=== PATIENT | female | born 1960 | race Two or more races ===

== ENCOUNTER 2018-01-19 18:12 | Inpatient (IN) | payer OTHER ==
[2018-01-19] MEDS: hydrALAzine 20 MG INJ IV (19:02)
[2018-01-19] MEDS: traMADol 50 MG TAB PO (22:02)
[2018-01-19] MEDS ORDERED: LORATADINE 10 MG TAB PO (22:30)
[2018-01-19] MEDS ORDERED: DOCUSATE SODIUM 100 MG CAP PO (22:30)
[2018-01-19] MEDS ORDERED: GLUCAGON 1 MG INJ IM (23:45)
[2018-01-19] MEDS ORDERED: GLUCOSE GEL 15 GRAM TUBE BUCCAL (23:45)
[2018-01-19] MEDS ORDERED: GLUCOSE GEL 15 GRAM TUBE PO ×2 (23:45)
[2018-01-20] MEDS: GABAPENTIN 300 MG CAP PO ×2 (00:21→20:57)
[2018-01-20] MEDS: BUMETANIDE 1 MG TAB PO ×3 (00:35→18:09)
[2018-01-20] MEDS: ACCU-CHEK XX (02:00)
[2018-01-20] MEDS: LEVOTHYROXINE 125 MCG TAB PO (06:45)
[2018-01-20] MEDS: METOPROLOL 25 MG TAB PO ×2 (08:58→20:57)
[2018-01-20] MEDS: MULTIVIT/CA CARB/B CMPLX/FA TAB PO (08:58)
[2018-01-20] MEDS: ISOSORBIDE MONONITRATE(SR)30 MG TAB PO (08:58)
[2018-01-20] MEDS: CLOTRIMAZOLE 1% 30 ML TOPICAL SOLN TOP ×2 (09:00→21:00)
[2018-01-20] MEDS ORDERED: LOSARTAN PO (09:00)
[2018-01-20] MEDS: INSULIN ASPART [NOVOLOG] 3 ML PEN SC ×5 (09:00→21:15)
[2018-01-20] MEDS ORDERED: [UNRECOGNIZED DRUG - REMARK] XX (09:00)
[2018-01-20] MEDS: INSULIN GLARGINE [LANtus] 3 ML PEN SC (09:01)
[2018-01-20] MEDS: traMADol 50 MG TAB PO ×2 (09:05→21:02)
[2018-01-20 12:13] LABS: ADD MAN DIFF? NO
[2018-01-20 12:20] LABS: BASOPHILS % 0.6 % (0.0-2.0); EOSINOPHILS # 0.2 10^3/ul (0.0-0.5); EOSINOPHILS % 2.7 % (0.0-7.0); HEMATOCRIT 37.4 % (37.0-47.0); HEMOGLOBIN 11.8 g/dl (12.0-16.0); LYMPHOCYTES # 1.3 10^3/ul (0.8-2.9); LYMPHOCYTES % 19.4 % (15.0-51.0); MEAN CORPUSCULAR HEMOGLOBIN 29.3 pg (29.0-33.0); MEAN CORPUSCULAR HGB CONC 31.6 g/dl (32.0-37.0); MEAN CORPUSCULAR VOLUME 92.8 fl (82.0-101.0); MEAN PLATELET VOLUME 12.1 fl (7.4-10.4); MONOCYTE # 0.4 10^3/ul (0.3-0.9); MONOCYTES % 6.6 % (0.0-11.0); NEUTROPHIL # 4.7 10^3/ul (1.6-7.5); NEUTROPHILS % 70.5 % (39.0-77.0); PLATELET COUNT 191 10^3/UL (140-415); RED BLOOD COUNT 4.03 10^6/ul (4.20-5.40); RED CELL DISTRIBUTION WIDTH 16.4 % (11.5-14.5)
[2018-01-20 12:20] LABS: WHITE BLOOD COUNT 6.6 10^3/ul (4.8-10.8)
[2018-01-20 12:21] LABS: POSITIVE DIFF @See below
[2018-01-20] MEDS: LOSARTAN 25 MG TAB PO (12:30)
[2018-01-20 12:41] LABS: ALANINE AMINOTRANSFERASE 29 IU/L (13-69); ALBUMIN 4.9 g/dl (3.3-4.9); ALBUMIN/GLOBULIN RATIO 1.28; ALKALINE PHOSPHATASE 193 IU/L (42-121); ANION GAP 24 (8-16); ASPARTATE AMINO TRANSFERASE 26 IU/L (15-46); BLOOD UREA NITROGEN 68 mg/dl (7-20); CALCIUM 9.5 mg/dl (8.4-10.2); CARBON DIOXIDE 22 mmol/L (21-31); CHLORIDE 102 mmol/L (97-110); GLUCOSE 224 mg/dl (70-220); POTASSIUM 4.8 mmol/L (3.5-5.1); SODIUM 143 mmol/L (135-144); TOTAL PROTEIN 8.7 g/dl (6.1-8.1)
[2018-01-20 12:48] LABS: INR 1.05; PROTIME 13.8 Sec (11.9-14.9); PT RATIO 1.1
[2018-01-20 12:49] LABS: PARTIAL THROMBOPLASTIN TIME 28.4 Sec (25.0-35.0)
[2018-01-20] MEDS: ATORVASTATIN 80 MG TAB PO (20:57)
[2018-01-21] MEDS: ACCU-CHEK XX (01:35)
[2018-01-21] MEDS: LEVOTHYROXINE 125 MCG TAB PO (06:06)
[2018-01-21] MEDS: BUMETANIDE 1 MG TAB PO ×2 (06:07→18:00)
[2018-01-21 06:11] LABS: ADD MAN DIFF? NO
[2018-01-21 06:18] LABS: BASOPHILS % 0.5 % (0.0-2.0); EOSINOPHILS # 0.2 10^3/ul (0.0-0.5); EOSINOPHILS % 4.2 % (0.0-7.0); HEMATOCRIT 37.7 % (37.0-47.0); HEMOGLOBIN 11.7 g/dl (12.0-16.0); LYMPHOCYTES # 1.4 10^3/ul (0.8-2.9); LYMPHOCYTES % 24.5 % (15.0-51.0); MEAN CORPUSCULAR HEMOGLOBIN 28.7 pg (29.0-33.0); MEAN CORPUSCULAR VOLUME 92.4 fl (82.0-101.0); MEAN PLATELET VOLUME 11.7 fl (7.4-10.4); MONOCYTE # 0.5 10^3/ul (0.3-0.9); MONOCYTES % 8.3 % (0.0-11.0); NEUTROPHIL # 3.5 10^3/ul (1.6-7.5); NEUTROPHILS % 62.3 % (39.0-77.0); PLATELET COUNT 218 10^3/UL (140-415); RED BLOOD COUNT 4.08 10^6/ul (4.20-5.40); RED CELL DISTRIBUTION WIDTH 16.4 % (11.5-14.5)
[2018-01-21 06:18] LABS: WHITE BLOOD COUNT 5.7 10^3/ul (4.8-10.8)
[2018-01-21 06:43] LABS: ANION GAP 23 (8-16); BLOOD UREA NITROGEN 77 mg/dl (7-20); CALCIUM 8.9 mg/dl (8.4-10.2); CARBON DIOXIDE 21 mmol/L (21-31); CHLORIDE 105 mmol/L (97-110); CREATININE 4.88 mg/dl (0.44-1.00); GLUCOSE 165 mg/dl (70-220); POTASSIUM 4.8 mmol/L (3.5-5.1); SODIUM 144 mmol/L (135-144)
[2018-01-21] MEDS: INSULIN ASPART [NOVOLOG] 3 ML PEN SC ×4 (08:31→21:29)
[2018-01-21] MEDS: INSULIN GLARGINE [LANtus] 3 ML PEN SC (08:32)
[2018-01-21] MEDS: ISOSORBIDE MONONITRATE(SR)30 MG TAB PO (09:00)
[2018-01-21] MEDS: METOPROLOL 25 MG TAB PO ×2 (09:00→21:00)
[2018-01-21] MEDS: LOSARTAN 25 MG TAB PO (09:00)
[2018-01-21] MEDS: MULTIVIT/CA CARB/B CMPLX/FA TAB PO (09:12)
[2018-01-21] MEDS: CLOTRIMAZOLE 1% 30 ML TOPICAL SOLN TOP ×2 (10:21→21:23)
[2018-01-21] MEDS: traMADol 50 MG TAB PO ×2 (17:58→23:45)
[2018-01-21] MEDS: ATORVASTATIN 80 MG TAB PO (21:21)
[2018-01-21] MEDS: GABAPENTIN 300 MG CAP PO (21:21)
[2018-01-21] MEDS: HEPARIN 1000 UNITS/ML 10 ML INJ CATHETER (22:56)
[2018-01-22 00:15] LABS: HEPATITIS B SURFACE ANTIGEN NEGATIVE (NEGATIVE)
[2018-01-22] MEDS: ACCU-CHEK XX (01:48)
[2018-01-22 03:00] LABS: HEPATITIS B SURFACE ANTIBODY POSITIVE (NEGATIVE)
[2018-01-22] MEDS: LEVOTHYROXINE 125 MCG TAB PO (06:04)
[2018-01-22] MEDS: BUMETANIDE 1 MG TAB PO ×2 (06:04→17:30)
[2018-01-22 06:08] LABS: ADD MAN DIFF? NO
[2018-01-22 06:11] LABS: BASOPHILS % 0.6 % (0.0-2.0); EOSINOPHILS # 0.2 10^3/ul (0.0-0.5); EOSINOPHILS % 3.6 % (0.0-7.0); HEMOGLOBIN 11.4 g/dl (12.0-16.0); LYMPHOCYTES # 1.4 10^3/ul (0.8-2.9); LYMPHOCYTES % 26.2 % (15.0-51.0); MEAN CORPUSCULAR HEMOGLOBIN 28.9 pg (29.0-33.0); MEAN CORPUSCULAR HGB CONC 31.7 g/dl (32.0-37.0); MEAN CORPUSCULAR VOLUME 91.1 fl (82.0-101.0); MEAN PLATELET VOLUME 11.6 fl (7.4-10.4); MONOCYTE # 0.5 10^3/ul (0.3-0.9); MONOCYTES % 9.7 % (0.0-11.0); NEUTROPHIL # 3.2 10^3/ul (1.6-7.5); NEUTROPHILS % 59.7 % (39.0-77.0); PLATELET COUNT 181 10^3/UL (140-415); RED BLOOD COUNT 3.95 10^6/ul (4.20-5.40); RED CELL DISTRIBUTION WIDTH 16.2 % (11.5-14.5)
[2018-01-22 06:11] LABS: WHITE BLOOD COUNT 5.3 10^3/ul (4.8-10.8)
[2018-01-22 06:32] LABS: ANION GAP 21 (8-16); BLOOD UREA NITROGEN 43 mg/dl (7-20); CALCIUM 8.6 mg/dl (8.4-10.2); CARBON DIOXIDE 24 mmol/L (21-31); CHLORIDE 102 mmol/L (97-110); GLUCOSE 212 mg/dl (70-220); POTASSIUM 4.1 mmol/L (3.5-5.1); SODIUM 143 mmol/L (135-144)
[2018-01-22] MEDS: INSULIN ASPART [NOVOLOG] 3 ML PEN SC ×5 (07:48→20:01)
[2018-01-22] MEDS: MULTIVIT/CA CARB/B CMPLX/FA TAB PO (09:28)
[2018-01-22] MEDS: METOPROLOL 25 MG TAB PO ×2 (09:29→20:02)
[2018-01-22] MEDS: LOSARTAN 25 MG TAB PO (09:29)
[2018-01-22] MEDS: ISOSORBIDE MONONITRATE(SR)30 MG TAB PO (09:29)
[2018-01-22] MEDS: INSULIN GLARGINE [LANtus] 3 ML PEN SC (09:31)
[2018-01-22] MEDS: CLOTRIMAZOLE 1% 30 ML TOPICAL SOLN TOP ×2 (09:44→20:05)
[2018-01-22 14:29] LABS: HEMOGLOBIN A1C 5.9 % (0-5.9)
[2018-01-22] MEDS: ATORVASTATIN 80 MG TAB PO (19:54)
[2018-01-22] MEDS: GABAPENTIN 300 MG CAP PO (19:54)
[2018-01-22] MEDS: traMADol 50 MG TAB PO (19:54)
[2018-01-23] MEDS: DEXTROSE 5%-0.45% NACL 1,000 ML IV ×2 (00:17→20:00)
[2018-01-23] MEDS: ACCU-CHEK XX (02:00)
[2018-01-23 06:01] LABS: ADD MAN DIFF? NO
[2018-01-23 06:10] LABS: WHITE BLOOD COUNT 5.9 10^3/ul (4.8-10.8)
[2018-01-23 06:10] LABS: BASOPHILS % 0.5 % (0.0-2.0); EOSINOPHILS # 0.2 10^3/ul (0.0-0.5); EOSINOPHILS % 4.1 % (0.0-7.0); HEMATOCRIT 35.3 % (37.0-47.0); HEMOGLOBIN 11.2 g/dl (12.0-16.0); LYMPHOCYTES # 1.8 10^3/ul (0.8-2.9); MEAN CORPUSCULAR HEMOGLOBIN 28.8 pg (29.0-33.0); MEAN CORPUSCULAR HGB CONC 31.7 g/dl (32.0-37.0); MEAN CORPUSCULAR VOLUME 90.7 fl (82.0-101.0); MEAN PLATELET VOLUME 11.7 fl (7.4-10.4); MONOCYTE # 0.6 10^3/ul (0.3-0.9); MONOCYTES % 9.5 % (0.0-11.0); NEUTROPHIL # 3.3 10^3/ul (1.6-7.5); NEUTROPHILS % 54.9 % (39.0-77.0); PLATELET COUNT 172 10^3/UL (140-415); RED BLOOD COUNT 3.89 10^6/ul (4.20-5.40); RED CELL DISTRIBUTION WIDTH 16.4 % (11.5-14.5)
[2018-01-23 06:44] LABS: ANION GAP 22 (8-16); BLOOD UREA NITROGEN 70 mg/dl (7-20); CALCIUM 8.4 mg/dl (8.4-10.2); CARBON DIOXIDE 22 mmol/L (21-31); CHLORIDE 101 mmol/L (97-110); CREATININE 4.19 mg/dl (0.44-1.00); GLUCOSE 158 mg/dl (70-220); POTASSIUM 4.3 mmol/L (3.5-5.1); SODIUM 141 mmol/L (135-144)
[2018-01-23] MEDS ORDERED: CEFAZOLIN 1 GM INJ (07:00)
[2018-01-23] MEDS: BUMETANIDE 1 MG TAB PO ×2 (07:30→18:00)
[2018-01-23] MEDS: LEVOTHYROXINE 125 MCG TAB PO (07:30)
[2018-01-23] MEDS: INSULIN ASPART [NOVOLOG] 3 ML PEN SC ×7 (08:15→22:36)
[2018-01-23] MEDS: MULTIVIT/CA CARB/B CMPLX/FA TAB PO (09:00)
[2018-01-23] MEDS: CLOTRIMAZOLE 1% 30 ML TOPICAL SOLN TOP ×2 (09:00→22:46)
[2018-01-23] MEDS: ISOSORBIDE MONONITRATE(SR)30 MG TAB PO (09:00)
[2018-01-23] MEDS: METOPROLOL 25 MG TAB PO ×2 (09:00→22:55)
[2018-01-23] MEDS: LOSARTAN 25 MG TAB PO (09:00)
[2018-01-23] MEDS: HEPARIN 1000 UNITS/ML 10 ML INJ CATHETER (10:56)
[2018-01-23] MEDS: INSULIN GLARGINE [LANtus] 3 ML PEN SC (11:07)
[2018-01-23] MEDS ORDERED: GELATIN SIZE 100 SPONGE (16:45)
[2018-01-23] MEDS ORDERED: THROMBIN 5000 UNIT VIAL (19:12)
[2018-01-23] MEDS ORDERED: FENTAnyl 50 MCG/ML VIAL ×2 (20:04→21:29)
[2018-01-23] MEDS: HEPARIN 1000 UNITS/ML 10 ML INJ (20:30)
[2018-01-23] MEDS ORDERED: hydrALAzine 20 MG INJ (20:46)
[2018-01-23] MEDS: IOHEXOL 300MG/ML 30 ML BTL (20:50)
[2018-01-23] MEDS: BUPIVACAINE 0.25% (STERILE-PAK) 30 ML INJ (21:20)
[2018-01-23] MEDS: LIDOCAINE 1% (MPF) 30 ML INJ (21:20)
[2018-01-23] MEDS ORDERED: HYDROmorphONE (0.2 MG/ML) 10ML SYG IV ×2 (21:30)
[2018-01-23] MEDS ORDERED: hydrALAzine 20 MG INJ IV (21:30)
[2018-01-23] MEDS ORDERED: ALBUTEROL 0.083% (NEB) 2.5 MG/3 ML AMP HHN (21:30)
[2018-01-23] MEDS ORDERED: DIPHENHYDRAMINE 50 MG INJ IV (21:30)
[2018-01-23] MEDS ORDERED: ONDANSETRON 4 MG INJ IV (21:30)
[2018-01-23] MEDS ORDERED: FENTAnyl 50 MCG/ML VIAL IV (21:30)
[2018-01-23] MEDS: FENTAnyl 50 MCG/ML VIAL IV ×3 (21:54→22:05)
[2018-01-23] MEDS: METOCLOPRAMIDE 10 MG INJ IV (22:05)
[2018-01-23] MEDS: GABAPENTIN 300 MG CAP PO (22:54)
[2018-01-23] MEDS: morphine 2 MG INJ IV (22:55)
[2018-01-23] MEDS: ATORVASTATIN 80 MG TAB PO (22:55)
[2018-01-24] MEDS: ACCU-CHEK XX (02:00)
[2018-01-24] MEDS: LEVOTHYROXINE 125 MCG TAB PO (05:42)
[2018-01-24] MEDS: BUMETANIDE 1 MG TAB PO ×2 (05:42→17:31)
[2018-01-24 05:47] LABS: ADD MAN DIFF? NO
[2018-01-24 05:54] LABS: WHITE BLOOD COUNT 5.7 10^3/ul (4.8-10.8)
[2018-01-24 05:54] LABS: BASOPHILS % 0.3 % (0.0-2.0); EOSINOPHILS # 0.2 10^3/ul (0.0-0.5); EOSINOPHILS % 3.5 % (0.0-7.0); HEMATOCRIT 38.6 % (37.0-47.0); HEMOGLOBIN 12.1 g/dl (12.0-16.0); LYMPHOCYTES # 1.4 10^3/ul (0.8-2.9); LYMPHOCYTES % 24.4 % (15.0-51.0); MEAN CORPUSCULAR HEMOGLOBIN 28.9 pg (29.0-33.0); MEAN CORPUSCULAR HGB CONC 31.3 g/dl (32.0-37.0); MEAN CORPUSCULAR VOLUME 92.3 fl (82.0-101.0); MEAN PLATELET VOLUME 11.4 fl (7.4-10.4); MONOCYTE # 0.5 10^3/ul (0.3-0.9); MONOCYTES % 9.1 % (0.0-11.0); NEUTROPHIL # 3.6 10^3/ul (1.6-7.5); NEUTROPHILS % 62.4 % (39.0-77.0); PLATELET COUNT 153 10^3/UL (140-415); RED BLOOD COUNT 4.18 10^6/ul (4.20-5.40); RED CELL DISTRIBUTION WIDTH 16.3 % (11.5-14.5)
[2018-01-24] MEDS: traMADol 50 MG TAB PO ×2 (05:55→17:52)
[2018-01-24 07:12] LABS: ANION GAP 20 (8-16); BLOOD UREA NITROGEN 38 mg/dl (7-20); CALCIUM 8.7 mg/dl (8.4-10.2); CARBON DIOXIDE 24 mmol/L (21-31); CHLORIDE 101 mmol/L (97-110); CREATININE 3.04 mg/dl (0.44-1.00); GLUCOSE 77 mg/dl (70-220); POTASSIUM 4.1 mmol/L (3.5-5.1); SODIUM 141 mmol/L (135-144)
[2018-01-24] MEDS: INSULIN ASPART [NOVOLOG] 3 ML PEN SC ×7 (07:52→20:35)
[2018-01-24] MEDS: INSULIN GLARGINE [LANtus] 3 ML PEN SC ×2 (09:00→12:17)
[2018-01-24] MEDS: LOSARTAN 25 MG TAB PO (09:00)
[2018-01-24] MEDS: METOPROLOL 25 MG TAB PO ×2 (09:00→20:31)
[2018-01-24] MEDS: ISOSORBIDE MONONITRATE(SR)30 MG TAB PO (09:00)
[2018-01-24] MEDS: MULTIVIT/CA CARB/B CMPLX/FA TAB PO (09:36)
[2018-01-24] MEDS: CLOTRIMAZOLE 1% 30 ML TOPICAL SOLN TOP ×2 (09:39→20:35)
[2018-01-24] MEDS: GABAPENTIN 300 MG CAP PO (20:31)
[2018-01-24] MEDS: ATORVASTATIN 80 MG TAB PO (20:31)
[2018-01-25] MEDS: ACCU-CHEK XX (01:01)
[2018-01-25] MEDS: BUMETANIDE 1 MG TAB PO ×2 (05:17→17:29)
[2018-01-25] MEDS: LEVOTHYROXINE 125 MCG TAB PO (06:13)
[2018-01-25 07:18] LABS: ADD MAN DIFF? NO
[2018-01-25 07:26] LABS: WHITE BLOOD COUNT 5.2 10^3/ul (4.8-10.8)
[2018-01-25 07:26] LABS: BASOPHILS % 0.4 % (0.0-2.0); EOSINOPHILS # 0.3 10^3/ul (0.0-0.5); EOSINOPHILS % 5.2 % (0.0-7.0); HEMATOCRIT 35.5 % (37.0-47.0); HEMOGLOBIN 10.9 g/dl (12.0-16.0); LYMPHOCYTES # 1.4 10^3/ul (0.8-2.9); LYMPHOCYTES % 27.4 % (15.0-51.0); MEAN CORPUSCULAR HEMOGLOBIN 28.2 pg (29.0-33.0); MEAN CORPUSCULAR HGB CONC 30.7 g/dl (32.0-37.0); MEAN PLATELET VOLUME 11.5 fl (7.4-10.4); MONOCYTE # 0.6 10^3/ul (0.3-0.9); MONOCYTES % 10.9 % (0.0-11.0); NEUTROPHIL # 2.9 10^3/ul (1.6-7.5); NEUTROPHILS % 55.9 % (39.0-77.0); PLATELET COUNT 143 10^3/UL (140-415); RED BLOOD COUNT 3.86 10^6/ul (4.20-5.40); RED CELL DISTRIBUTION WIDTH 16.1 % (11.5-14.5)
[2018-01-25 07:50] LABS: ANION GAP 22 (8-16); BLOOD UREA NITROGEN 61 mg/dl (7-20); CALCIUM 8.4 mg/dl (8.4-10.2); CARBON DIOXIDE 23 mmol/L (21-31); CHLORIDE 102 mmol/L (97-110); CREATININE 4.37 mg/dl (0.44-1.00); GLUCOSE 98 mg/dl (70-220); POTASSIUM 4.5 mmol/L (3.5-5.1); SODIUM 142 mmol/L (135-144)
[2018-01-25] MEDS: INSULIN ASPART [NOVOLOG] 3 ML PEN SC ×5 (08:01→21:00)
[2018-01-25] MEDS: INSULIN GLARGINE [LANtus] 3 ML PEN SC (08:11)
[2018-01-25] MEDS: LOSARTAN 25 MG TAB PO (09:00)
[2018-01-25] MEDS: MULTIVIT/CA CARB/B CMPLX/FA TAB PO (09:00)
[2018-01-25] MEDS: METOPROLOL 25 MG TAB PO ×2 (09:00→20:29)
[2018-01-25] MEDS ORDERED: DEXTROSE 5%-0.45% NACL 500 ML IV (09:00)
[2018-01-25] MEDS: ISOSORBIDE MONONITRATE(SR)30 MG TAB PO (09:00)
[2018-01-25] MEDS: CLOTRIMAZOLE 1% 30 ML TOPICAL SOLN TOP ×2 (09:00→21:00)
[2018-01-25] MEDS: DEXTROSE 5%-0.45% NACL 1,000 ML IV (09:05)
[2018-01-25] MEDS: DEXTROSE 50% 50 ML SYRINGE IV (16:50)
[2018-01-25] MEDS ORDERED: MIDAZOLAM 1 MG/ML 2 ML INJ (18:19)
[2018-01-25] MEDS ORDERED: KETAMINE 500 MG INJ (18:19)
[2018-01-25] MEDS ORDERED: CEFAZOLIN 1 GM INJ (18:22)
[2018-01-25] MEDS: LIDOCAINE 1% (MPF) 30 ML INJ ×2 (18:39→18:45)
[2018-01-25] MEDS: HEPARIN 1000 UNITS/ML 10 ML INJ (18:39)
[2018-01-25] MEDS ORDERED: LABETALOL HCL 20MG INJ (18:45)
[2018-01-25] MEDS: IOHEXOL 300MG/ML 30 ML BTL (18:50)
[2018-01-25] MEDS: GABAPENTIN 300 MG CAP PO (20:28)
[2018-01-25] MEDS: traMADol 50 MG TAB PO (20:29)
[2018-01-25] MEDS: ATORVASTATIN 80 MG TAB PO (20:29)
[2018-01-25] MEDS: morphine LIQ (10 MG/5 ML) CUP PO (22:00)
[2018-01-26] MEDS: morphine LIQ (10 MG/5 ML) CUP PO ×2 (01:57→06:23)
[2018-01-26] MEDS: ACCU-CHEK XX (02:00)
[2018-01-26 06:19] LABS: ADD MAN DIFF? NO
[2018-01-26] MEDS: BUMETANIDE 1 MG TAB PO (06:19)
[2018-01-26] MEDS: LEVOTHYROXINE 125 MCG TAB PO (06:19)
[2018-01-26 06:31] LABS: WHITE BLOOD COUNT 6.8 10^3/ul (4.8-10.8)
[2018-01-26 06:31] LABS: BASOPHILS % 0.3 % (0.0-2.0); EOSINOPHILS # 0.2 10^3/ul (0.0-0.5); EOSINOPHILS % 2.6 % (0.0-7.0); HEMATOCRIT 34.9 % (37.0-47.0); LYMPHOCYTES # 1.4 10^3/ul (0.8-2.9); LYMPHOCYTES % 20.2 % (15.0-51.0); MEAN CORPUSCULAR HEMOGLOBIN 28.7 pg (29.0-33.0); MEAN CORPUSCULAR HGB CONC 31.5 g/dl (32.0-37.0); MEAN CORPUSCULAR VOLUME 91.1 fl (82.0-101.0); MEAN PLATELET VOLUME 12.1 fl (7.4-10.4); MONOCYTE # 0.6 10^3/ul (0.3-0.9); MONOCYTES % 9.4 % (0.0-11.0); NEUTROPHIL # 4.6 10^3/ul (1.6-7.5); NEUTROPHILS % 67.4 % (39.0-77.0); PLATELET COUNT 122 10^3/UL (140-415); RED BLOOD COUNT 3.83 10^6/ul (4.20-5.40); RED CELL DISTRIBUTION WIDTH 15.9 % (11.5-14.5)
[2018-01-26 06:57] LABS: ANION GAP 22 (8-16); BLOOD UREA NITROGEN 48 mg/dl (7-20); CALCIUM 8.5 mg/dl (8.4-10.2); CARBON DIOXIDE 22 mmol/L (21-31); CHLORIDE 105 mmol/L (97-110); CREATININE 3.86 mg/dl (0.44-1.00); GLUCOSE 52 mg/dl (70-220); POTASSIUM 4.5 mmol/L (3.5-5.1); SODIUM 144 mmol/L (135-144)
[2018-01-26] MEDS: INSULIN ASPART [NOVOLOG] 3 ML PEN SC ×4 (08:15→12:23)
[2018-01-26] MEDS: DEXTROSE 50% 50 ML SYRINGE IV (08:49)
[2018-01-26] MEDS: INSULIN GLARGINE [LANtus] 3 ML PEN SC (08:58)
[2018-01-26] MEDS: ISOSORBIDE MONONITRATE(SR)30 MG TAB PO (10:08)
[2018-01-26] MEDS: MULTIVIT/CA CARB/B CMPLX/FA TAB PO (10:08)
[2018-01-26] MEDS: LOSARTAN 25 MG TAB PO (10:09)
[2018-01-26] MEDS: CLOTRIMAZOLE 1% 30 ML TOPICAL SOLN TOP (10:09)
[2018-01-26] MEDS: METOPROLOL 25 MG TAB PO (10:09)
== END 2018-01-26 16:00 | disposition home or self-care (01) | DRG 252 ==
LOC: MS2 18:12
PROVIDERS: Internal Medicine
PROC: 05CC0ZZ Extirpation of Matter from Left Basilic Vein, Open Approach (ICD-10-PCS; principal; 2018-01-23 17:00)
PROC: 5A1D70Z Performance of Urinary Filtration, Intermittent, Less than 6 Hours Per Day (ICD-10-PCS; 2018-01-23 20:03)
PROC: 06HY33Z Insertion of Infusion Device into Lower Vein, Percutaneous Approach (ICD-10-PCS; 2018-01-23 20:03)
PROC: 05HN33Z Insertion of Infusion Device into Left Internal Jugular Vein, Percutaneous Approach (ICD-10-PCS; 2018-01-23 20:03)
PROC: B544ZZA Ultrasonography of Left Jugular Veins, Guidance (ICD-10-PCS; 2018-01-23 20:03)
DX: T82.868A Thrombosis due to vascular prosthetic devices, implants and grafts, initial encounter (principal); N18.6 End stage renal disease; I12.0 Hypertensive chronic kidney disease with stage 5 chronic kidney disease or end stage renal disease; E10.22 Type 1 diabetes mellitus with diabetic chronic kidney disease; E10.65 Type 1 diabetes mellitus with hyperglycemia; Z99.2 Dependence on renal dialysis; Z79.4 Long term (current) use of insulin; D63.1 Anemia in chronic kidney disease; I25.10 Atherosclerotic heart disease of native coronary artery without angina pectoris; I73.9 Peripheral vascular disease, unspecified; E03.9 Hypothyroidism, unspecified; Z95.1 Presence of aortocoronary bypass graft; Z98.61 Coronary angioplasty status; I25.2 Old myocardial infarction
CPT/HCPCS: 73060; 80048; 80053; 82962; 83036; 83735; 84703; 85025; 85610; 85730; 86706; 87340; 90935